=== PATIENT | female | born 1960 | race Caucasian/White ===

== ENCOUNTER → 2025-03-16 | Outpatient (CLI) | payer MEDICARE ==
--- NOTE | 2025-03-16 12:39 | MM ---
Reason for Exam: Screening (asymptomatic). Last mammogram was performed 23 year(s) and 9 month(s) ago. Patient History: Menarche at age 11. Patient has no children. Postmenopausal. Core Biopsy on the Right side. Benign Stereotactic Core Biopsy. Mother had breast cancer, age 65. Risk Values: Teetee 5 year model risk: 4.9%. NCI Lifetime model risk: 16.8%. Prior Study Comparison: 12/03/1999 Bilateral Diagnostic Mammogram, [facility]. 06/17/2000 Bilateral Diagnostic Mammogram, [facility]. 06/19/2001 Bilateral Diagnostic Mammogram, [facility]. Tissue Density: There are scattered areas of fibroglandular density. Findings: Analyzed By CAD. There is no suspicious group of microcalcifications or new suspicious mass in either breast. Overall Assessment: Benign, BI-RAD 2 Management: Screening Mammogram of both breasts in 1 year. . Patient should continue monthly self-breast exams. A clinical breast exam by your physician is recommended on an annual basis. This exam should not preclude additional follow-up of suspicious palpable abnormalities. Note on Teetee scores and lifetime risk: 1. A Teetee score greater than 3% is considered moderate risk. If this is the case, consider specialist referral to assess eligibility for a risk reducing agent. 2. If overall lifetime risk for the development of breast cancer is 20% or higher, the patient may qualify for future screening with alternating mammogram and breast MRI. [facility], , 03/16/2025 12:36 PM. Electronically signed and approved by: Stalin Adames M.D. Radiolog[facility]
== END | disposition home or self-care (01) ==
LOC: RADMAMWWP 11:54
PROVIDERS: ATTEND Family Medicine
DX: Z12.31 Encounter for screening mammogram for malignant neoplasm of breast (principal); R92.323 Mammographic fibroglandular density, bilateral breasts; Z78.0 Asymptomatic menopausal state; Z80.3 Family history of malignant neoplasm of breast
CPT/HCPCS: 77063; 77067